=== PATIENT | female | born 1960 | race Caucasian/White ===

== ENCOUNTER 2021-07-03 21:38 | Emergency (ER) | payer OTHER, SELFPAY ==
[2021-07-03 21:41] VITALS: BP 157/70; PULSE 91; RESP 18; TEMP 36.8; O2SAT 98; BMI 28.1
[2021-07-03 22:19] LABS: Basophils Percent Auto 0.2 % (0-2); Eosinophils Absolute Auto 0.1 X10*3/uL (0.0-0.4); Hematocrit 34.7 % (37-47); Hemoglobin 12.5 g/dl (12.0-16.0); Imm Gran Abs Auto 0.03 X10*3/uL (0.00-0.03); Imm Gran Pct Auto 0.3 % (0.0-0.4); Lymphocytes Absolute Auto 1.8 X10*3/uL (1.2-4.9); Lymphocytes Percent Auto 18.9 % (20-40); MANUAL DIFF FLAG NO; Mean Corpuscular Hemoglobin 32.5 pg (27.0-33.0); Mean Corpuscular Volume 90.1 fL (80-98); Monocytes Absolute Auto 0.5 X10*3/uL (0.1-1.2); Monocytes Percent Auto 5.3 % (2-11); Neutrophils Absolute Auto 7.1 X10*3/uL (2.0-8.3); Neutrophils Percent Auto 74.3 % (45-73); Platelet Count 259 X10*3/uL (160-400); Red Blood Count 3.85 X10*6/uL (4.20-5.50); Red Cell Distribution Width 12.5 % (11.0-16.0); White Blood Count 9.6 X10*3/uL (4.8-10.8)
--- NOTE | 2021-07-03 22:39 | ED.HA ---
HPI - Headache General Chief Complaint: Headache Stated Complaint: headache Time Seen by Provider: 07/03/21 22:32 Source: patient Mode of arrival: ambulatory Limitations: no limitations History of Present Illness HPI Narrative: 61-year-old female with a past medical history of hypertension, seasonal allergies, sinusitis, hypothyroidism here with complaints of frontal headache with sinus pressure, pain, and nasal congestion for several days. Took Motrin today with continued headache. Does have some photophobia and headache is worsened with leaning forward. No nausea, vomiting, vision changes, dizziness, chest pain. History of sinusitis and feel similar. Was concerned that blood pressure was elevated 160/70 at home. This was before she took her morning dose of lisinopril 20 mg. Related Data Previous Rx's Medication Instructions Recorded amoxicillin 875 mg-potassium 1 tab PO BID #14 tab 07/03/21 clavulanate 125 mg tablet (Augmentin) qjugskmvoh-dwmsexxeyodiw-lzjbftkf 1 cap PO Q6H PRN #10 cap 07/03/21 50 mg-300 mg-40 mg capsule (Fioricet) Allergies Allergy/AdvReac Type Severity Reaction Status Date / Time No Known Allergies Allergy Unverified 07/13/20 16:20 Review of Systems Review of Systems: Yes all other systems are reviewed and are negative Constitutional: Constitutional: Reports no additional constitutional complaints, Denies body ache(s), Denies chills, Denies fever(s), Reports headache(s) and Denies weakness Eyes: Eyes: Reports no additional eye complaints and Denies change in vision Comments: Photophobia ENT: Reports system reviewed and no additional complaints, except as documented, Denies dizziness, Reports headache(s), Reports nasal congestion, Denies nasal discharge, Denies neck pain, Reports sinus pain and Reports sinus pressure Cardiovascular: Cardiovascular: Reports no additional cardiovascular complaints, Denies chest pain, Denies leg edema and Denies dyspnea Respiratory: Respiratory: Reports no additional respiratory complaints, Denies cough and Denies dyspnea Gastrointestinal: Gastrointestinal: Reports no additional gastrointestinal complaints, Denies abdominal pain, Denies diarrhea, Denies nausea and Denies vomiting Genitourinary: Genitourinary: Reports no additional female genitourinary complaints and Denies urinary incontinence Musculoskeletal: Musculoskeletal: Reports no additional musculoskeletal complaints, Denies back pain, Denies arthralgias, Denies joint swelling, Denies neck pain, Denies numbness and Denies tingling Integumentary/Breasts: Skin/Breast: Reports system reviewed and no additional complaints, except as docu and Denies rash Neurologic: Reports system reviewed and no additional complaints, except as documented, Denies Abnormal speech present, Denies dizziness, Reports headache(s), Denies numbness, Denies tingling and Denies weakness PMFSH Past Medical History Attestation statement: The following information was validated with the patient. Source: old records reviewed and nursing notes reviewed Medical History HTN (hypertension) Surgical History History of thyroid surgery Social History Social History Patient Tobacco Use Status: Never used Tobacco Use of substances other than those prescribed or required for medical reasons: No Advance Directives: No Advance Directives Information Provided: No Physical Exam Vital Signs: Vital Signs: Last Vital Signs Temp 98.3 F 07/03/21 21:41 Pulse 82 07/03/21 22:47 Resp 18 07/03/21 22:47 BP 160/88 H 07/03/21 22:47 Pulse Ox 98 07/03/21 22:47 Body Mass Index 28.1 Const: General: cooperative, healthy appearing, comfortable and no acute distress Orientation/consciousness: patient oriented x3 Limitations: no limitations HENMT: Head: Yes normal to inspection Ears: hearing grossly normal bilaterally and TM's normal bilaterally General nose exam: Normal external nose present Face and sinus: Yes normal facial exam and Yes sinus tenderness Mouth: Normal oral and palatal mucosa present Throat: Yes posterior oropharynx normal, Yes tonsils normal and Yes uvula midline Eyes: General: appearance normal, both eyes and all related structures Pupils: Equal, round and reactive pupils present Neck: Neck: Yes normal visual inspection Chest: Chest palpation & inspection: normal inspection of the chest Resp: Effort & Inspection: normal respiratory effort Auscultation: clear to auscultation bilaterally Cardio: Rate: regular rate Rhythm: regular rhythm Peripheral pulses: Peripheral pulses 2+ throughout GI: Inspection: Yes normal to inspection Palpation (GI): Soft to palpation and nontender Auscultation: normal bowel sounds Back/Spine/Pelvis: Thoracic/Lumbar Spine: thoracic and lumbar spine normal to inspection Skin: General skin exam: no rashes or lesions noted Neuro: General: patient oriented x3, no focal motor deficits and normal sensation to monofilament Cranial nerves: Yes CN's II-XII intact bilaterally, Yes Equal, round and reactive pupils present, Yes Bilaterally intact EOM present, Yes Nystagmus not present, Yes Normal facial strength present and Yes Midline tongue present Cognition (Neuro): normal cognition Speech: No Abnormal speech present Gait exam (Neuro): Normal gait present Motor exam (neuro): 5/5 motor strength present throughout Sensory Exam: Normal double simultaneous stimulation for sensation Coordination: vlwdcm-jt-lpcp test normal, nlxr-yo-lqmx test normal and tandem gait normal Extrem: General: Yes normal to inspection Course Course Course Narrative: 61-year-old female here with complaints of frontal headache, sinus pressure and pain, nasal congestion for several days. History of sinusitis and feel similar. Took Motrin prior to arrival with continued complaints. Normal neurological exam. No neuro deficits. Hemodynamically stable. Will give fiorcet and re-assess. If feeling improved will discharge home with course of antibiotics 2320-pain is improving. Patient is tolerating p.o.. Will treat with course of antibiotics and analgesia for home. Reviewed worrisome signs and symptoms of when to return to the emergency department. Comfortable discharge home. MDM - Headache Differential Diagnosis Differential diagnosis: Likely migraine and sinusitis Medical Records Attestation: I reviewed the patient's medical records. Lab Data Attestation: I reviewed the patient's lab results. Result diagrams: 07/03/21 22:14 07/03/21 22:14 Labs: Lab Results 07/03/21 07/03/21 Range/Units 22:14 22:14 WBC 9.6 (4.8-10.8) X10*3/uL RBC 3.85 L (4.20-5.50) X10*6/uL Hgb 12.5 (12.0-16.0) g/dl Hct 34.7 L (37-47) % MCV 90.1 (80-98) fL MCH 32.5 (27.0-33.0) pg MCHC 36.0 H (31.0-35.0) g/dl RDW 12.5 (11.0-16.0) % Plt Count 259 (160-400) X10*3/uL MPV 10.0 (9.4-12.3) fL Immature Gran % (Auto) 0.3 (0.0-0.4) % Neut % (Auto) 74.3 H (45-73) % Lymph % (Auto) 18.9 L (20-40) % [place] % (Auto) 5.3 (2-11) % Eos % (Auto) 1.0 (0-4) % Baso % (Auto) 0.2 (0-2) % Lymph # (Auto) 1.8 (1.2-4.9) X10*3/uL [place] # (Auto) 0.5 (0.1-1.2) X10*3/uL Eos # (Auto) 0.1 (0.0-0.4) X10*3/uL Baso # (Auto) 0.0 (0.0-0.2) X10*3/uL Abs Immat Gran (auto) 0.03 (0.00-0.03) X10*3/uL Absolute Neuts (auto) 7.1 (2.0-8.3) X10*3/uL Absolute Nucleated RBC 0.000 (0.0-0.012) X10*3/uL Nucleated RBC % (auto) 0.0 (0.0-0.2) /100WBC Sodium 140 (135-145) mmol/L Potassium 4.0 (3.3-5.1) mmol/L Chloride 106 (96-108) mmol/L Carbon Dioxide 24 (22-29) mmol/L Anion Gap 14 (12-20) BUN 15 (9-16) mg/dL Creatinine 0.78 (0.5-1.4) mg/dL Estim Creat Clear Calc 54.4 Estimated GFR > 60 Random Glucose 124 H (60-115) mg/dL Calcium 9.5 (8.4-10.2) mg/dL Total Bilirubin 0.4 (0.0-1.0) mg/dL Direct Bilirubin < 0.2 (0.0-0.5) mg/dL AST 22 (5-31) U/L ALT 21 (0-31) U/L Alkaline Phosphatase 79 (39-117) U/L Total Protein 7.6 (6.5-8.0) g/dL Albumin 4.6 (3.5-5.0) g/dL Discharge Plan Discharge Clinical Impression: Migraine, Sinusitis Patient Disposition: Home, Self-Care Instructions: Sinusitis (ED), Migraine Headache (ED) Additional Instructions: Increase Fluids, rest Limit screen time Your lab work looks normal Follow-up with your primary care doctor in regards to your high blood pressure. Continue your daily medication Prescriptions: New amoxicillin-pot clavulanate [Augmentin] 875-125 mg tablet 1 tab PO BID Qty: 14 RF: 0 dmhrggnbef-jwaqhpkpeuuen-smeu [Fioricet] 50-300-40 mg capsule 1 cap PO Q6H PRN (Reason: pain) Qty: 10 RF: 0 Referrals: Physician,Unknown [Primary Care Provider] - 2 days
[2021-07-03] MEDS: Butalb/Acetamin/Caff 50/325/40 TABLET 2 TAB PO (22:44)
[2021-07-03 22:46] LABS: Alanine Aminotransferase 21 U/L (0-31); Albumin Level 4.6 g/dL (3.5-5.0); Alkaline Phosphatase 79 U/L (39-117); Anion Gap 14 (12-20); Aspartate Amino Transferase 22 U/L (5-31); Bilirubin Direct < 0.2 mg/dL (0.0-0.5); Bilirubin Total 0.4 mg/dL (0.0-1.0); Blood Urea Nitrogen 15 mg/dL (9-16); Calcium 9.5 mg/dL (8.4-10.2); Carbon Dioxide 24 mmol/L (22-29); Chloride 106 mmol/L (96-108); Creatinine Clr Calc Pharmacy 54.4; Estimated Glomerular Filt Rate > 60; Glucose Random 124 mg/dL (60-115); Sodium 140 mmol/L (135-145); Total Protein 7.6 g/dL (6.5-8.0)
[2021-07-03 22:47] VITALS: BP 160/88; PULSE 82; RESP 18; O2SAT 98
[2021-07-03 23:57] VITALS: BP 123/71; PULSE 82; RESP 16; O2SAT 98
[2021-07-04 00:01] VITALS: BP 123/71; PULSE 79; RESP 16
== END 2021-07-04 00:01 | disposition home or self-care (01) ==
PROVIDERS: Emergency Provider Internal Medicine
DX: G43.909 Migraine, unspecified, not intractable, without status migrainosus (principal); J32.9 Chronic sinusitis, unspecified; I10 Essential (primary) hypertension
CPT/HCPCS: 36415; 80048; 80076; 85025; 99283; 99284

== ENCOUNTER 2022-01-15 23:31 | Emergency (ER) | payer OTHER, SELFPAY ==
--- NOTE | ~2022-01-15 | XR_ITS ---
EXAMINATION: XR CHEST, 2 VIEWS CLINICAL INFORMATION: High blood pressure. Migraine. COMPARISON: None. TECHNIQUE: PA and lateral views of the chest were obtained. FINDINGS: Lungs are clear. No consolidation, pneumothorax, or pleural effusion. Cardiac and mediastinal contours are normal. Pulmonary vasculature is unremarkable. Trachea is midline. Mild degenerative disc disease in the thoracic spine. XR/XR chest 2V IMPRESSION: No acute pulmonary findings.
[2022-01-15 23:37] VITALS: BP 187/101; PULSE 98; RESP 20; TEMP 37.8; O2SAT 98; BMI 28.9
[2022-01-16] MEDS: Acetaminophen 325 MG TABLET 975 MG PO (00:01)
[2022-01-16 00:33] LABS: Basophils Percent Auto 0.2 % (0-2); Eosinophils Absolute Auto 0.2 X10*3/uL (0.0-0.4); Eosinophils Percent Auto 1.4 % (0-4); Hematocrit 33.8 % (37.0-47.0); Hemoglobin 12.1 g/dl (12.0-16.0); Imm Gran Abs Auto 0.02 X10*3/uL (0.00-0.03); Imm Gran Pct Auto 0.2 % (0.0-0.4); Lymphocytes Absolute Auto 1.8 X10*3/uL (1.2-4.9); Lymphocytes Percent Auto 15.7 % (20-40); MANUAL DIFF FLAG NO; Mean Corpuscular HGB Conc 35.8 g/dl (31.0-35.0); Mean Corpuscular Hemoglobin 32.3 pg (27.0-33.0); Mean Corpuscular Volume 90.1 fL (80.0-98.0); Mean Platelet Volume 9.9 fL (9.4-12.3); Monocytes Absolute Auto 0.6 X10*3/uL (0.1-1.2); Monocytes Percent Auto 5.4 % (2-11); Neutrophils Absolute Auto 8.8 x10*3/uL (2.0-8.3); Neutrophils Percent Auto 77.1 % (45-73); Platelet Count 281 X10*3/uL (160-400); Red Blood Count 3.75 X10*6/uL (4.20-5.50); Red Cell Distribution Width 12.5 % (11.0-16.0); White Blood Count 11.4 X10*3/uL (4.8-10.8)
[2022-01-16 00:39] LABS: Prothrombin Time 11.1 SEC (9.9-13.0)
[2022-01-16 00:49] LABS: COVID-19 Test Negative (Negative); IDNOW Serial# 55D5AD1C
[2022-01-16 00:51] LABS: Influenza A Negative (Negative); Influenza B2 Negative (Negative)
[2022-01-16 01:08] LABS: Alanine Aminotransferase 21 U/L (0-31); Albumin Level 4.4 g/dL (3.5-5.0); Alkaline Phosphatase 78 U/L (39-117); Anion Gap 16 (12-20); Aspartate Amino Transferase 21 U/L (5-31); Bilirubin Total 0.4 mg/dL (0.0-1.0); Blood Urea Nitrogen 19 mg/dL (9-16); Calcium 9.5 mg/dL (8.4-10.2); Carbon Dioxide 23 mmol/L (22-29); Chloride 106 mmol/L (96-108); Creatinine Clr Calc Pharmacy 56.6; Estimated Glomerular Filt Rate > 60; Glucose Random 150 mg/dL (60-115); Magnesium 2.1 mg/dL (1.6-2.6); Potassium 3.9 mmol/L (3.3-5.1); Sodium 141 mmol/L (135-145); Total Protein 7.1 g/dL (6.5-8.0)
[2022-01-16 02:50] VITALS: BP 150/77; PULSE 84; RESP 15; O2SAT 99
[2022-01-16 03:01] VITALS: PULSE 84
--- NOTE | 2022-01-16 03:23 | ED.GENADULT ---
HPI - General Adult General Chief complaint: General Medical Stated complaint: High BP, migraine Time Seen by Provider: 01/15/22 23:56 Source: patient Mode of arrival: ambulatory History of Present Illness HPI narrative: 61-year-old female with history of hypertension and migraines presenting with typical migraine onset and progression that patient typically treats with Motrin but she states she did not take any this evening. She says that she had an elevated blood pressure and otherwise denies any shortness of breath, fevers, chills, GI or symptoms. Patient states that she noted her blood pressure was elevated in says that she has run out of blood pressure medications. Related Data Home Medications Medication Instructions Recorded Confirmed ibuprofen 800 mg tablet 1 tab PO TID PRN 01/16/22 01/16/22 levothyroxine 75 mcg tablet 1 tab PO DAILY 01/16/22 01/16/22 lisinopril 20 mg tablet 1 tab PO DAILY 01/16/22 01/16/22 loratadine 10 mg tablet 1 tab PO DAILY 01/16/22 01/16/22 Previous Rx's Medication Instructions Recorded lisinopril 20 mg tablet 20 mg PO DAILY 7 Days #7 tab 01/16/22 Allergies Allergy/AdvReac Type Severity Reaction Status Date / Time No Known Allergies Allergy Unverified 07/13/20 16:20 Review of Systems Review of Systems: Pertinent positives and negatives as stated in HPI 10 point review of systems is otherwise negative. [facility] Past Medical History Source: nursing notes reviewed Medical History HTN (hypertension) Surgical History History of thyroid surgery Social History Social History Patient Tobacco Use Status: Never used Tobacco Advance Directives: No Advance Directives Information Provided: Yes Physical Exam ED Vital Signs: Vital Signs - 24 hr 01/15/22 23:37 01/16/22 02:50 01/16/22 03:01 Temperature 100.0 F Pulse Rate 98 84 Pulse Rate [Monitor] 84 Respiratory Rate 20 15 Blood Pressure 187/101 H 150/77 H Pulse Oximetry 98 99 01/16/22 03:42 01/16/22 03:43 01/16/22 03:45 Temperature 97.7 F Pulse Rate 86 Pulse Rate [Monitor] Respiratory Rate 13 Blood Pressure 129/75 Pulse Oximetry 98 BMI result Body Mass Index 28.9 VITAL SIGNS: Reviewed. GENERAL: Well developed, well nourished, in no acute distress. HEAD: Normocephalic/atraumatic EYES: PERRLA, EOMI EARS: Ext canals without abnormality, TMs non-bulging and non-erythematous NOSE: Nares patent bilateral OROPHARYNX: no oral lesions noted, posterior pharynx clear and non-erythematous without noted tonsillar enlargement/erythema/exudates NECK: Supple, no adenopathy LUNGS: Normal breath sounds. No adventitious sounds or accessory muscle use. SpO2<98> CARDIOVASCULAR: Regular rate and rhythm without noted murmurs, no JVD or lower extremity edema. ABDOMEN: Soft, non-tender, non-distended with bowel sounds. SKIN: Inspection of the skin reveals no rashes NEUROLOGIC: Alert and oriented x 4. Strength and sensation to light touch were grossly intact x 4, no facial asymmetry, no pronator drift, cranial nerves 2-12 are grossly intact. Course Course Course Narrative: 61-year-old female with history and clinical presentation suggestive of migraine headache. Review of all investigations without acute findings and on re-evaluation after patient received medication for migraine she reports significant improvement and then endorses that she is out of blood pressure medication and she expects to pick it up this . Patient will be provided with a 1 week supply of her home blood pressure medication. Medical Decision Making Lab Data Result diagrams: 01/16/22 00:23 01/16/22 00:23 Labs: Lab Results 01/16/22 01/16/22 01/16/22 Range/Units 00: 00:23 00:23 WBC 11.4 H (4.8-10.8) X10*3/uL RBC 3.75 L (4.20-5.50) X10*6/uL Hgb 12.1 (12.0-16.0) g/dl Hct 33.8 L (37.0-47.0) % MCV 90.1 (80.0-98.0) fL MCH 32.3 (27.0-33.0) pg MCHC 35.8 H (31.0-35.0) g/dl RDW 12.5 (11.0-16.0) % Plt Count 281 (160-400) X10*3/uL MPV 9.9 (9.4-12.3) fL Immature Gran % (Auto) 0.2 (0.0-0.4) % Neut % (Auto) 77.1 H (45-73) % Lymph % (Auto) 15.7 L (20-40) % Becker % (Auto) 5.4 (2-11) % Eos % (Auto) 1.4 (0-4) % Baso % (Auto) 0.2 (0-2) % Lymph # (Auto) 1.8 (1.2-4.9) X10*3/uL Becker # (Auto) 0.6 (0.1-1.2) X10*3/uL Eos # (Auto) 0.2 (0.0-0.4) X10*3/uL Baso # (Auto) 0.0 (0.0-0.2) X10*3/uL Abs Immat Gran (auto) 0.02 (0.00-0.03) X10*3/uL Absolute Neuts (auto) 8.8 H (2.0-8.3) x10*3/uL Absolute Nucleated RBC 0.000 (0.0-0.012) X10*3/uL Nucleated RBC % (auto) 0.0 (0.0-0.2) /100WBC Hold Purple Top PT 11.1 (9.9-13.0) SEC INR 1.0 (0.9-1.1) Sodium 141 (135-145) mmol/L Potassium 3.9 (3.3-5.1) mmol/L Chloride 106 (96-108) mmol/L Carbon Dioxide 23 (22-29) mmol/L Anion Gap 16 (12-20) BUN 19 H (9-16) mg/dL Creatinine 0.76 (0.5-1.4) mg/dL Estim Creat Clear Calc 56.6 Estimated GFR > 60 Random Glucose 150 H (60-115) mg/dL Calcium 9.5 (8.4-10.2) mg/dL Magnesium 2.1 (1.6-2.6) mg/dL Total Bilirubin 0.4 (0.0-1.0) mg/dL AST 21 (5-31) U/L ALT 21 (0-31) U/L Alkaline Phosphatase 78 (39-117) U/L Total Protein 7.1 (6.5-8.0) g/dL Albumin 4.4 (3.5-5.0) g/dL Urine Color Urine Appearance Urine pH (5.0-8.0) Ur Specific Marlow (1.005-1.025) Urine Protein (NEG-TRACE) MG/DL Urine Glucose (UA) (NEG) MG/DL Urine Ketones (NEG) MG/DL Urine Blood (NEG) Urine Nitrite (NEG) Ur Leukocyte Esterase (NEG) COVID-19 (YIMI) (Negative) COVID-19 Clin Com Influenza Type A (PATRICK) (Negative) Influenza Type B (PATRICK) (Negative) Influenza A & B Note 01/16/22 01/16/22 01/16/22 Range/Units 00:23 00:23 00:23 WBC (4.8-10.8) X10*3/uL RBC (4.20-5.50) X10*6/uL Hgb (12.0-16.0) g/dl Hct (37.0-47.0) % MCV (80.0-98.0) fL MCH (27.0-33.0) pg MCHC (31.0-35.0) g/dl RDW (11.0-16.0) % Plt Count (160-400) X10*3/uL MPV (9.4-12.3) fL Immature Gran % (Auto) (0.0-0.4) % Neut % (Auto) (45-73) % Lymph % (Auto) (20-40) % [place] % (Auto) (2-11) % Eos % (Auto) (0-4) % Baso % (Auto) (0-2) % Lymph # (Auto) (1.2-4.9) X10*3/uL [place] # (Auto) (0.1-1.2) X10*3/uL Eos # (Auto) (0.0-0.4) X10*3/uL Baso # (Auto) (0.0-0.2) X10*3/uL Abs Immat Gran (auto) (0.00-0.03) X10*3/uL Absolute Neuts (auto) (2.0-8.3) x10*3/uL Absolute Nucleated RBC (0.0-0.012) X10*3/uL Nucleated RBC % (auto) (0.0-0.2) /100WBC Hold Purple Top SEE NOTE PT (9.9-13.0) SEC INR (0.9-1.1) Sodium (135-145) mmol/L Potassium (3.3-5.1) mmol/L Chloride (96-108) mmol/L Carbon Dioxide (22-29) mmol/L Anion Gap (12-20) BUN (9-16) mg/dL Creatinine (0.5-1.4) mg/dL Estim Creat Clear Calc Estimated GFR Random Glucose (60-115) mg/dL Calcium (8.4-10.2) mg/dL Magnesium (1.6-2.6) mg/dL Total Bilirubin (0.0-1.0) mg/dL AST (5-31) U/L ALT (0-31) U/L Alkaline Phosphatase (39-117) U/L Total Protein (6.5-8.0) g/dL Albumin (3.5-5.0) g/dL Urine Color Urine Appearance Urine pH (5.0-8.0) Ur Specific [place] (1.005-1.025) Urine Protein (NEG-TRACE) MG/DL Urine Glucose (UA) (NEG) MG/DL Urine Ketones (NEG) MG/DL Urine Blood (NEG) Urine Nitrite (NEG) Ur Leukocyte Esterase (NEG) COVID-19 (YIMI) Negative (Negative) COVID-19 Clin Com See Note Influenza Type A (PATRICK) Negative (Negative) Influenza Type B (PATRICK) Negative (Negative) Influenza A & B Note See Note 01/16/22 Range/Units 03:36 WBC (4.8-10.8) X10*3/uL RBC (4.20-5.50) X10*6/uL Hgb (12.0-16.0) g/dl Hct (37.0-47.0) % MCV (80.0-98.0) fL MCH (27.0-33.0) pg MCHC (31.0-35.0) g/dl RDW (11.0-16.0) % Plt Count (160-400) X10*3/uL MPV (9.4-12.3) fL Immature Gran % (Auto) (0.0-0.4) % Neut % (Auto) (45-73) % Lymph % (Auto) (20-40) % [place] % (Auto) (2-11) % Eos % (Auto) (0-4) % Baso % (Auto) (0-2) % Lymph # (Auto) (1.2-4.9) X10*3/uL [place] # (Auto) (0.1-1.2) X10*3/uL Eos # (Auto) (0.0-0.4) X10*3/uL Baso # (Auto) (0.0-0.2) X10*3/uL Abs Immat Gran (auto) (0.00-0.03) X10*3/uL Absolute Neuts (auto) (2.0-8.3) x10*3/uL Absolute Nucleated RBC (0.0-0.012) X10*3/uL Nucleated RBC % (auto) (0.0-0.2) /100WBC Hold Purple Top PT (9.9-13.0) SEC INR (0.9-1.1) Sodium (135-145) mmol/L Potassium (3.3-5.1) mmol/L Chloride (96-108) mmol/L Carbon Dioxide (22-29) mmol/L Anion Gap (12-20) BUN (9-16) mg/dL Creatinine (0.5-1.4) mg/dL Estim Creat Clear Calc Estimated GFR Random Glucose (60-115) mg/dL Calcium (8.4-10.2) mg/dL Magnesium (1.6-2.6) mg/dL Total Bilirubin (0.0-1.0) mg/dL AST (5-31) U/L ALT (0-31) U/L Alkaline Phosphatase (39-117) U/L Total Protein (6.5-8.0) g/dL Albumin (3.5-5.0) g/dL Urine Color YELLOW Urine Appearance HAZY Urine pH 7.0 (5.0-8.0) Ur Specific [place] 1.020 (1.005-1.025) Urine Protein NEG (NEG-TRACE) MG/DL Urine Glucose (UA) NEG (NEG) MG/DL Urine Ketones NEG (NEG) MG/DL Urine Blood NEG (NEG) Urine Nitrite NEG (NEG) Ur Leukocyte Esterase NEG (NEG) COVID-19 (YIMI) (Negative) COVID-19 Clin Com Influenza Type A (PATRICK) (Negative) Influenza Type B (PATRICK) (Negative) Influenza A & B Note ECG Data Attestation: I personally reviewed and interpreted this ECG as follows: Prior ECG tracings: not available for review Interpretation: Normal sinus rhythm, HR-92, no STEMI, AL/QRS/QTC are within normal limits. Discharge Plan Discharge Clinical Impression: Migraine, Hypertension Patient Disposition: Home, Self-Care Instructions: Migraine Headache (ED), DASH Eating Plan (ED), Hypertension (ED) Additional Instructions: 1. You have been provided with a prescription for 1 week of your blood pressure medication. 2. Please follow-up with your primary care provider for re-evaluation and further outpatient management. Return to the ER for worsening symptoms. Prescriptions: New lisinopril 20 mg tablet 20 mg PO DAILY 7 Days Qty: 7 0RF No Action ibuprofen 800 mg tablet 1 tab PO TID PRN (Reason: Pain) 0RF lisinopril 20 mg tablet 1 tab PO DAILY 0RF levothyroxine 75 mcg tablet 1 tab PO DAILY 0RF loratadine 10 mg tablet 1 tab PO DAILY 0RF Referrals: [facility] [Provider Group] - 2 days
[2022-01-16] MEDS: Ibuprofen 400 MG TABLET PO (03:41)
[2022-01-16 03:42] VITALS: TEMP 36.5
[2022-01-16 03:42] LABS: Appearance Urine HAZY; Color Urine YELLOW; Glucose Urine UA NEG (NEG); Leukocyte Esterase Urine NEG (NEG); Nitrite Urine NEG (NEG); Urine Blood NEG (NEG); Urine Ketones NEG (NEG); Urine Protein NEG (NEG-TRACE)
[2022-01-16 03:43] VITALS: PULSE 86; RESP 13; O2SAT 98
[2022-01-16 03:45] VITALS: BP 129/75
--- NOTE | 2022-01-16 23:56 | ECG_ITS ---
Test Reason : hypertension Blood Pressure : / mmHG Vent. Rate : 092 BPM Atrial Rate : 092 BPM P-R Int : 164 ms QRS Dur : 074 ms QT Int : 358 ms P-R-T Axes : 056 000 020 degrees QTc Int : 442 ms Normal sinus rhythm Minimal voltage criteria for LVH, may be normal variant ( R in aVL ) Borderline ECG When compared with ECG of 07-SEP-2012 11:34, No significant change was found Referred By: Generic ED Physician Electronically Signed By:Abran Rizzo
== END 2022-01-16 04:24 | disposition home or self-care (01) ==
PROVIDERS: Physician Assistant Medical; Emergency Provider Student in an Organized Health Care Education/Training Program
DX: G43.909 Migraine, unspecified, not intractable, without status migrainosus (principal); I10 Essential (primary) hypertension; Z20.822 Contact with and (suspected) exposure to COVID-19
CPT/HCPCS: 36415; 71046; 80053; 81003; 83735; 85025; 85610; 87502; 87635; 93005; 99283; 99284

== ENCOUNTER 2022-07-23 08:32 | Emergency (ER) | payer OTHER, MEDICARE, SELFPAY ==
--- NOTE | ~2022-07-23 | XR_ITS ---
EXAMINATION: XR RIBS, RIGHT CLINICAL INFORMATION: Right-sided pain COMPARISON: 01/16/2022 TECHNIQUE: 3 views of the right ribs were obtained. FINDINGS: No displaced rib fracture is seen. Lungs are well-expanded and clear. No pneumothorax or pleural effusion. The cardiomediastinal contour is unremarkable. XR/XR ribs RT min 3V w CXR1V IMPRESSION: No displaced rib fracture identified.
--- NOTE | ~2022-07-23 | CT_ITS ---
EXAM: NONCONTRAST CT OF THE CHEST; NONCONTRAST CT OF THE ABDOMEN AND PELVIS INDICATION: Fall, rib pain, right-sided greater than COMPARISON: None TECHNIQUE: No IV contrast was utilized. Multidetector helical imaging was performed through the chest, abdomen, and pelvis. Coronal and sagittal reformatted images were created at the technologist workstation. DOSE LOWERING TECHNIQUES: This CT examination was performed using dose optimization techniques as appropriate, variously including the following: - Automated exposure control - Adjustment of mA and/or kV according to patient size (this includes techniques or standardized protocols for targeted exams were dose is matched to indication/reason for exam; i.e. extremities or head) - Use of iterative reconstruction technique DLP: 648 mGy-cm FINDINGS: Chest: No regions of consolidation bilaterally mild bibasilar subsegmental atelectasis tiny calcified granulomas noted in the right lower lobe No pneumothorax or pleural effusion. There are subcentimeter mediastinal lymph nodes within the range of normal variation. Cardiac size is within normal limits; no pericardial effusion. Mild scattered calcification along the aorta. No axillary lymphadenopathy is present. No fracture identified. Multilevel degenerative endplate changes are present in the spine. Abdomen/Pelvis: The liver is homogeneous in attenuation without intrahepatic biliary ductal dilatation. The gallbladder is unremarkable. The unenhanced spleen, pancreas, and adrenal glands are within normal limits. The unenhanced kidneys are unremarkable without hydronephrosis. No renal or ureteral calculi are present. The urinary bladder is unremarkable. The uterus and adnexa are unremarkable. The small and large bowel are unremarkable without evidence of obstruction or pericolonic inflammatory change. The appendix is suspected to be collapsed. No free fluid or free air is identified. The unenhanced vascular structures are unremarkable. No retroperitoneal or pelvic lymphadenopathy is seen. No acute fracture is seen. There is severe joint space narrowing and surrounding degenerative endplate change at L5-S1. There is left-sided facet arthropathy at L4-L5. Scattered endplate osteophytes noted in the spine. Degenerative changes present at the pubic symphysis. CT/CT abdomen pelvis wo IV con IMPRESSION: 1. No acute findings identified in the chest, abdomen, or pelvis. 2. Chronic appearing/degenerative changes as noted above.
[2022-07-23 08:40] VITALS: BP 136/75; PULSE 81; RESP 18; TEMP 36.9; O2SAT 100; BMI 28.1
--- NOTE | 2022-07-23 10:28 | ED_ITS ---
HPI - General Adult General Chief complaint: Fall Stated complaint: fall/rib pain Time Seen by Provider: 07/23/22 10:17 Source: patient Mode of arrival: ambulatory Limitations: no limitations History of Present Illness HPI narrative: Patient is a 62 year old female presenting to the emergency department today with right sided rib pain. Patient states that she slipped and fell down the stairs and while sliding she turned onto her right side. Patient states that she did not hit her head with the incident and did not have any loss of consciousness. Patient states that only her right side hurts now. Patient denies any dizziness, lightheadedness, abdominal pain, nausea, vomiting, fever, chills, blurry vision, double vision, loss of vision, chest pain, difficulty breathing, shortness of breath, back pain, night sweats, pain with urination, increased urinary frequency, increased urinary urgency, blood in her urine or stool, syncope or a near syncopal episode, bowel incontinence, bladder incontinence, bowel retention, bladder retention, or any other complaints at this time. Onset (ago): hour(s) Radiation: non-radiation Severity: mild Severity scale (1-10): 3 Quality: aching, dull and constant Pain Consistency: constant Relieving factors: none Exacerbating factors: other (deep breathing) Associated symptoms: denies other symptoms Treatments prior to arrival: none Related Data Home Medications Medication Instructions Recorded Confirmed ibuprofen 800 mg tablet 1 tab PO TID PRN Pain 01/16/22 01/16/22 levothyroxine 75 mcg tablet 1 tab PO DAILY 01/16/22 01/16/22 lisinopril 20 mg tablet 1 tab PO DAILY 01/16/22 01/16/22 loratadine 10 mg tablet 1 tab PO DAILY 01/16/22 01/16/22 Previous Rx's Medication Instructions Recorded lisinopril 20 mg tablet 20 mg PO DAILY 7 days #7 tabs 01/16/22 Allergies Allergy/AdvReac Type Severity Reaction Status Date / Time No Known Allergies Allergy Unverified 07/13/20 16:20 Review of Systems Constitutional: Constitutional: Reports no additional constitutional complaints, Denies chills, Denies fever(s) and Denies night sweats Eyes: Eyes: Reports no additional eye complaints, Denies blurry vision, Denies change in vision, Denies diplopia, Denies eye discharge, Denies loss of vision and Denies eye pain ENT: Denies dizziness Cardiovascular: Cardiovascular: Reports no additional cardiovascular complaints, Denies chest pain, Denies lightheadedness, Denies Loss of Consciousness and Denies dyspnea Respiratory: Respiratory: Reports no additional respiratory complaints and Denies dyspnea Gastrointestinal: Gastrointestinal: Reports no additional gastrointestinal complaints, Denies abdominal pain, Denies melena, Denies hematochezia, Denies change in bowel habits and Denies change in stool character Genitourinary: Genitourinary: Denies hematuria, Denies urinary frequency, Denies dysuria, Denies urinary incontinence, Denies urinary hesitancy and Denies urinary urgency Musculoskeletal: Musculoskeletal: Reports no additional musculoskeletal complaints, Denies numbness and Denies tingling Comments: right sided rib pain Neurologic: Denies dizziness, Denies loss of vision, Denies numbness and Denies tingling Psychiatric: Psychiatric: Reports no additional psychiatric complaints Endocrine: Endocrine: Reports no additional endocrine complaints Hematologic/Lymphatic: Hematologic/Lymphatic: Reports no additional hematologic/lymphatic complaints Allergic/Immunologic: Allergic/Immunologic: Reports no additional bradley rgic/immunologic complaints PMFSH Past Medical History Attestation statement: The following information was validated with the patient. Source: old records reviewed Medical History HTN (hypertension) Surgical History History of thyroid surgery Social History Social History Patient Tobacco Use Status: Never used Tobacco Use of substances other than those prescribed or required for medical reasons: No Advance Directives: No Advance Directives Information Provided: No Physical Exam ED Vital Signs: Vital Signs - 24 hr 07/23/22 08:40 07/23/22 11:07 Temperature 98.4 F 98.4 F Pulse Rate 81 88 Respiratory Rate 18 18 Blood Pressure 136/75 181/84 H Pulse Oximetry 100 100 Oxygen Delivery Method Room Air BMI result Body Mass Index 28.1 Const General: cooperative, no acute distress, alert and awake Nutritional Appearance: well nourished Orientation/consciousness: patient oriented x3 Limitations: no limitations HENMT Head: Yes normal to inspection and Yes atraumatic Ears: hearing grossly normal bilaterally and external ears normal General nose exam: Normal external nose present, no nasal discharge noted and no epistaxis Face and sinus: Yes normal facial exam, No abrasion and No laceration Mouth: Normal oral and palatal mucosa present, no drooling and no muffled voice Eyes General: appearance normal, both eyes and all related structures Periorbital: periorbital findings normal Eyelids: Yes eyelids normal Conjunctivae: conjunctivae normal Pupils: Equal, round and reactive pupils present EOM: EOMs intact bilaterally Neck Neck: Yes normal visual inspection, Yes full ROM and Yes no lymphadenopathy Chest Other: pain with palpation to the right upper chest Chest palpation & inspection: normal inspection of the chest Resp Effort & Inspection: normal respiratory effort and able to speak in complete sentences Auscultation: clear to auscultation bilaterally Cardio Rate: regular rate Rhythm: regular rhythm GI Inspection: Yes normal to inspection Neuro General: patient oriented x3 and moves all extremities Cranial nerves: Yes Equal, round and reactive pupils present Cognition (Neuro): normal cognition Motor exam (neuro): 5/5 motor strength present throughout Sensory Exam: Normal double simultaneous stimulation for sensation Coordination: [id number] test normal Extrem General: Yes normal to inspection, Yes full ROM and Yes capillary refill normal Psych Appearance: grossly normal Mental Status: mental status grossly normal Affect: normal affect Attitude: cooperative Thought process: Normal thought process present Thought content: Normal thought content present Insight: Good insight present (Psych) Medical Decision Making MDM Narrative Medical decision making narrative: Patient is a 62 year old female presenting to the emergency department today with right rib pain. Patient's physical exam showed tenderness to palpation of the right upper ribs but was otherwise unremarkable. Patient's chest x-ray showed no acute process. Patient's abdominal and chest CTs showed no acute process. I explained my physical exam findings as well as all test results to the patient. I answered all questions asked by the patient. Patient received PO [place] and IM Toradol which she stated helped her symptoms significantly. I stressed the importance of the patient taking her medication as prescribed. Patient was given an incentive spirometer and given incentive spirometer education. I stressed the importance of the patient following up with her primary care provider. I stressed the importance of the patient returning to the emergency department immediately if her symptoms were to worsen or if she were to develop any dizziness, shortness of breath, difficulty breathing, chest pain, blurry vision, loss of vision, nausea, vomiting, abdominal pain, fever, chills, back pain, or any other complaints. Patient verbalized agreement and understanding with this treatment plan and discharge. Medical Records Medical records reviewed: Yes I reviewed the patient's medical records. Imaging Data Chest x-ray: Attestation: I personally reviewed and interpreted this imaging study as follows: My impression: No acute process. Radiologist's impression: EXAMINATION: XR RIBS, RIGHT CLINICAL INFORMATION: Right-sided pain COMPARISON: 01/16/2022 TECHNIQUE: 3 views of the right ribs were obtained. FINDINGS: No displaced rib fracture is seen. Lungs are well-expanded and clear. No pneumothorax or pleural effusion. The cardiomediastinal contour is unremarkable. XR/XR ribs RT min 3V w CXR1V IMPRESSION: No displaced rib fracture identified. Dictated By: Leo Heller MD Signed By: Electronically signed by Leo Heller MD 07/23/22 1003 Chest and abdominal/pelvis CT : Attestation: I personally reviewed and interpreted this imaging study as follows: My impression: No acute process. Radiologist's impression: EXAM: NONCONTRAST CT OF THE CHEST; NONCONTRAST CT OF THE ABDOMEN AND PELVIS INDICATION: Fall, rib pain, right-sided greater than COMPARISON: None TECHNIQUE: No IV contrast was utilized. Multidetector helical imaging was performed through the chest, abdomen, and pelvis. Coronal and sagittal reformatted images were created at the technologist workstation. DOSE LOWERING TECHNIQUES: This CT examination was performed using dose optimization techniques as appropriate, variously including the following: ?- Automated exposure control ?- Adjustment of mA and/or kV according to patient size (this includes techniques or standardized protocols for targeted exams were dose is matched to indication/reason for exam; i.e. extremities or head) ?- Use of iterative reconstruction technique DLP: 648 mGy-cm FINDINGS: Chest: No regions of consolidation bilaterally mild bibasilar subsegmental atelectasis tiny calcified granulomas noted in the right lower lobe No pneumothorax or pleural effusion. There are subcentimeter mediastinal lymph nodes within the range of normal variation. Cardiac size is within normal limits; no pericardial effusion. Mild scattered calcification along the aorta. No axillary lymphadenopathy is present. No fracture identified. Multilevel degenerative endplate changes are present in the spine. Abdomen/Pelvis: The liver is homogeneous in attenuation without intrahepatic biliary ductal dilatation. The gallbladder is unremarkable. The unenhanced spleen, pancreas, and adrenal glands are within normal limits. The unenhanced kidneys are unremarkable without hydronephrosis. No renal or ureteral calculi are present. The urinary bladder is unremarkable. The uterus and adnexa are unremarkable. The small and large bowel are unremarkable without evidence of obstruction or pericolonic inflammatory change. The appendix is suspected to be collapsed. No free fluid or free air is identified. The unenhanced vascular structures are unremarkable. No retroperitoneal or pelvic lymphadenopathy is seen. No acute fracture is seen. There is severe joint space narrowing and surrounding degenerative endplate change at L5-S1. There is left-sided facet arthropathy at L4-L5. Scattered endplate osteophytes noted in the spine. Degenerative changes present at the pubic symphysis. CT/CT abdomen pelvis wo IV con IMPRESSION: 1.? No acute findings identified in the chest, abdomen, or pelvis. 2.? Chronic appearing/degenerative changes as noted above. Dictated By: Leo Heller MD Signed By: Electronically signed by Leo Heller MD 07/23/22 9920 Discharge Plan Discharge Clinical Impression: Contusion Patient Disposition: Home, Self-Care Instructions: Contusion in Adults (ED) Additional Instructions: Follow up with your primary care provider. Return to the emergency department immediately if your symptoms worsen or if you develop any dizziness, shortness of breath, difficulty breathing, chest pain, blurry vision, loss of vision, nausea, vomiting, abdominal pain, fever, chills, back pain, or any other complaints. Prescriptions: No Action ibuprofen 800 mg tablet 1 tab PO TID PRN (Reason: Pain) lisinopril 20 mg tablet 1 tab PO DAILY levothyroxine 75 mcg tablet 1 tab PO DAILY loratadine 10 mg tablet 1 tab PO DAILY lisinopril 20 mg tablet 20 mg PO DAILY 7 Days Qty: 7 0RF Referrals: [facility] [Primary Care Provider] - Interventions: ED Discharge Assessment Last Done: 07/23/22 13:35 Discharge Date/Time: 07/23/22 13:36 Print Language: [place] Citizen
[2022-07-23] MEDS: HYDROcodone Bit/Acetam 5/325 TABLET 1 TAB PO (11:06)
[2022-07-23 11:07] VITALS: BP 181/84; PULSE 88; RESP 18; TEMP 36.9; O2SAT 100
--- NOTE | 2022-07-23 11:11 | PC.NURSE ---
[place] [facility] and had an x-ray but did not wait for results
[2022-07-23] MEDS: Ketorolac Tromethamine 15 MG/ML VIAL IM (13:30)
== END 2022-07-23 13:36 | disposition home or self-care (01) ==
PROVIDERS: Emergency Provider Emergency Medicine
DX: S20.213A Contusion of bilateral front wall of thorax, initial encounter (principal); S30.1XXA Contusion of abdominal wall, initial encounter; R07.81 Pleurodynia; R10.2 Pelvic and perineal pain; M54.6 Pain in thoracic spine; W10.9XXA Fall (on) (from) unspecified stairs and steps, initial encounter; Y93.9 Activity, unspecified; Y92.9 Unspecified place or not applicable; Y99.9 Unspecified external cause status; Z79.899 Other long term (current) drug therapy
CPT/HCPCS: 71101; 71250; 74176; 96372; 99284; J1885

== ENCOUNTER 2022-12-22 08:07 | Emergency (ER) | payer OTHER, SELFPAY ==
--- NOTE | ~2022-12-22 | CT_ITS ---
CT head/brain wo IV con CLINICAL INFORMATION: Reason for Exam head trauma with continued neurologic symptoms COMPARISON: No prior CT scan available for comparison. TECHNIQUE: Department standard protocol. This CT examination was performed using dose optimization techniques as appropriate, variously including the following: *Automated exposure control *Adjustment of mA and/or kV according to patient size (this includes techniques or standardized protocols for targeted exams where dose is matched to indication/reason for exam; i.e. extremities or head) *Use of iterative reconstruction technique DLP: 557 mGy-cm FINDINGS: CEREBRAL HEMISPHERES: There is no evidence of intra-axial or extra-axial mass, hemorrhage or acute infarct. BRAIN PARENCHYMA: Normal rogers-white matter differentiation. SUBDURAL SPACE: No bleed. BASAL GANGLIA AND PINEAL GLAND: Unremarkable VENTRICLES: Symmetric and normal in size. CEREBELLUM AND BRAINSTEM: No space-occupying mass, hemorrhage or acute infarct. CEREBELLOPONTINE ANGLES: No lesion found. ORBITS: No intraorbital mass. VESSELS: Unremarkable SKULL BASE: Unremarkable INCLUDED SINUSES AT SKULL BASE: Clear SKULL AND SKIN: Intraosseous radiolucencies posteriorly occipital bone at midline, this is chronic and has not changed since 2018 suggesting benign appearance and/or behavior. No CT evidence of skull fracture. CT/CT head/brain wo IV con IMPRESSION: * No CT evidence of intracranial space-occupying mass, bleed or infarct. * Intraosseous radiolucencies posteriorly occipital bone at midline, this is chronic and has not changed since 2018 suggesting benign appearance and/or behavior.
[2022-12-22 08:10] VITALS: BP 146/83; PULSE 97; RESP 18; TEMP 36.6; O2SAT 98; BMI 28.1
--- NOTE | 2022-12-22 08:18 | ED.GENADULT ---
HPI - General Adult General Chief complaint: Head Injury Stated complaint: Fall 1 wk ago Head/Neck pain Time Seen by Provider: 12/22/22 08:17 Source: patient Mode of arrival: ambulatory Limitations: no limitations History of Present Illness HPI narrative: 2 weeks ago had a head trauma at [facility] and was discharged. Patient with headache and throbbing in her ears. Onset (ago): day(s) Location: head Severity: mild Pain Consistency: constant Associated symptoms: denies other symptoms Related Data Home Medications Medication Instructions Recorded Confirmed ibuprofen 800 mg tablet 1 tab PO TID PRN Pain 01/16/22 01/16/22 levothyroxine 75 mcg tablet 1 tab PO DAILY 01/16/22 01/16/22 lisinopril 20 mg tablet 1 tab PO DAILY 01/16/22 01/16/22 loratadine 10 mg tablet 1 tab PO DAILY 01/16/22 01/16/22 Previous Rx's Medication Instructions Recorded lisinopril 20 mg tablet 20 mg PO DAILY 7 days #7 tabs 01/16/22 Allergies Allergy/AdvReac Type Severity Reaction Status Date / Time No Known Allergies Allergy Unverified 07/13/20 16:20 [facility] Past Medical History Medical History HTN (hypertension) Surgical History History of thyroid surgery Social History Social History Patient Tobacco Use Status: Never used Tobacco Smoked in Last 30 Days: No Use of substances other than those prescribed or required for medical reasons: No Advance Directives: No Advance Directives Information Provided: Yes Physical Exam ED Vital Signs: Vital Signs - 24 hr 12/22/22 08:10 12/22/22 09:34 12/22/22 10:00 Temperature 97.9 F 98.7 F Pulse Rate 97 87 78 Respiratory Rate 18 16 14 Blood Pressure 146/83 H 129/66 Pulse Oximetry 98 99 98 Oxygen Delivery Method Room Air Room Air Room Air BMI result Body Mass Index 28.1 Const General: healthy appearing Nutritional Appearance: average body habitus Orientation/consciousness: oriented to person and patient oriented x3 Limitations: no limitations HENMT Head: Yes normal to inspection Ears: external ears normal General nose exam: Normal external nose present Mouth: Normal oral and palatal mucosa present and oropharynx normal Throat: Yes posterior oropharynx normal Eyes General: appearance normal, both eyes and all related structures Neck Neck: Yes normal visual inspection Chest Chest palpation & inspection: normal inspection of the chest Resp Auscultation: clear to auscultation bilaterally Cardio Jugular venous distension: no JVD Rate: regular rate Rhythm: regular rhythm Heart sounds: S1 normal heart sound present and S2 normal heart sound present GI Inspection: Yes normal to inspection Palpation (GI): Soft to palpation, nontender and No hepatosplenomegaly present Auscultation: normal bowel sounds General: Yes no CVA tenderness Back/Spine/Pelvis Back: no CVA tenderness Skin Other: small scab to back of head Neuro General: oriented to person and patient oriented x3 Cranial nerves: Yes CN's II-XII intact bilaterally Motor exam (neuro): 5/5 motor strength present throughout Extrem General: Yes normal to inspection Psych Appearance: grossly normal Course Reevaluation(s) Reevaluation #1: head CT show no acute changes, will dc home Time: 11:19 Medical Decision Making Differential Diagnosis Differential Diagnoses: The differential diagnosis associated with the presentation includes (subdural, concussion, post concussion) Independent Interpretation I performed an independent interpretation of an: CT Scan (no bleed or subdural) Discharge Plan Discharge Clinical Impression: Closed head injury, Concussion without loss of consciousness, Postconcussion syndrome Patient Disposition: Home, Self-Care Instructions: Chronic Post Traumatic Headache (ED), Post Concussion Syndrome (ED) Prescriptions: No Action ibuprofen 800 mg tablet 1 tab PO TID PRN (Reason: Pain) lisinopril 20 mg tablet 1 tab PO DAILY levothyroxine 75 mcg tablet 1 tab PO DAILY loratadine 10 mg tablet 1 tab PO DAILY lisinopril 20 mg tablet 20 mg PO DAILY 7 Days Qty: 7 0RF Referrals: [facility] [Primary Care Provider] - 1 week
[2022-12-22 09:34] VITALS: PULSE 87; RESP 16; O2SAT 99
--- NOTE | 2022-12-22 09:36 | PC.NURSE ---
Pt reports head injury 12/03/22 with +LOC for approx 2 min. States persistent posterior headache, dizziness and left ear throbbing. Neuros are intact, speech clear. Denies nausea/vomiting. Skin pwd. VSS Out of room for ct scan at this time, steady gait
[2022-12-22 10:00] VITALS: BP 129/66; PULSE 78; RESP 14; TEMP 37.1; O2SAT 98
== END 2022-12-22 11:44 | disposition home or self-care (01) ==
PROVIDERS: Emergency Provider Emergency Medicine
DX: S06.0X0A Concussion without loss of consciousness, initial encounter (principal); R51.9 Headache, unspecified; W18.30XA Fall on same level, unspecified, initial encounter; Y93.9 Activity, unspecified; Y92.9 Unspecified place or not applicable; Y99.9 Unspecified external cause status; Z79.899 Other long term (current) drug therapy
CPT/HCPCS: 70450; 99284

== ENCOUNTER 2023-06-20 23:05 | Emergency (ER) | payer OTHER, MEDICARE, SELFPAY ==
--- NOTE | 2023-06-20 | ECG_ITS ---
Test Reason : ELEVATED BP Blood Pressure : / mmHG Vent. Rate : 089 BPM Atrial Rate : 089 BPM P-R Int : 146 ms QRS Dur : 074 ms QT Int : 376 ms P-R-T Axes : 064 004 035 degrees QTc Int : 457 ms Normal sinus rhythm Normal ECG When compared with ECG of 16-JAN-2022 00:10, No significant change was found Referred By: Generic ED Physician Electronically Signed By:LURDES HEAD
--- NOTE | ~2023-06-20 | CT_ITS ---
EXAMINATION: CT HEAD WITHOUT CONTRAST CLINICAL INFORMATION: Severe headache for 2 days with hypertension COMPARISON: 12/22/2022 TECHNIQUE: Contiguous axial imaging was performed from the skull base to vertex without intravenous administration of contrast. This CT examination was performed using dose optimization techniques as appropriate, variously including the following: *Automated exposure control *Adjustment of mA and/or kV according to patient size (this includes techniques or standardized protocols for targeted exams where dose is matched to indication/reason for exam; i.e. extremities or head) *Use of iterative reconstruction technique DLP: 550 mGy-cm FINDINGS: There is no evidence of acute intracranial hemorrhage or territorial infarction. No abnormal mass-effect or midline shift is seen. Chaudhari to white matter differentiation is well preserved. No extra-axial fluid collections are identified. The ventricles are normal in size. There is no abnormal attenuation within the brain parenchyma. No acute osseous findings. The mastoid air cells and visualized portions of the paranasal sinuses are well-aerated. CT/CT head/brain wo IV con IMPRESSION: No acute intracranial pathology.
[2023-06-20 23:24] VITALS: BP 191/118; PULSE 95; RESP 18; TEMP 36.8; O2SAT 98; BMI 29.2
[2023-06-21 00:24] LABS: MANUAL DIFF FLAG NO
[2023-06-21 00:25] LABS: Basophils Percent Auto 0.2 % (0-2); Eosinophils Absolute Auto 0.1 X10*3/uL (0.0-0.4); Eosinophils Percent Auto 1.2 % (0-4); Hematocrit 35.4 % (37.0-47.0); Hemoglobin 12.5 g/dl (12.0-16.0); Imm Gran Abs Auto 0.07 X10*3/uL (0.00-0.03); Imm Gran Pct Auto 0.8 % (0.0-0.4); Lymphocytes Absolute Auto 2.1 X10*3/uL (1.2-4.9); Lymphocytes Percent Auto 24.2 % (20-40); Mean Corpuscular HGB Conc 35.3 g/dl (31.0-35.0); Mean Corpuscular Hemoglobin 31.8 pg (27.0-33.0); Mean Corpuscular Volume 90.1 fL (80.0-98.0); Mean Platelet Volume 9.5 fL (9.4-12.3); Monocytes Absolute Auto 0.6 X10*3/uL (0.1-1.2); Monocytes Percent Auto 6.2 % (2-11); Neutrophils Percent Auto 67.4 % (45-73); Platelet Count 314 X10*3/uL (160-400); Red Blood Count 3.93 X10*6/uL (4.20-5.50); Red Cell Distribution Width 12.5 % (11.0-16.0); White Blood Count 8.9 X10*3/uL (4.8-10.8)
[2023-06-21 00:37] LABS: Anion Gap 12 (12-20); Blood Urea Nitrogen 14 mg/dL (9-16); Calcium 9.9 mg/dL (8.4-10.2); Carbon Dioxide 26 mmol/L (22-29); Chloride 108 mmol/L (96-108); Creatinine Clr Calc Pharmacy 55.5; Estimated Glomerular Filt Rate > 60; Glucose Random 157 mg/dL (60-115); Potassium 3.9 mmol/L (3.3-5.1); Sodium 142 mmol/L (135-145)
[2023-06-21 01:59] VITALS: BP 177/96; PULSE 90; RESP 18; O2SAT 98
[2023-06-21 02:33] VITALS: BP 179/98; PULSE 87; RESP 16; TEMP 37; O2SAT 98
--- NOTE | 2023-06-21 02:49 | ED_ITS ---
HPI - General Adult General Chief complaint: General Medical Stated complaint: high bp x 2 days 183/109 around 9 pm Time Seen by Provider: 06/21/23 02:36 Source: patient Mode of arrival: ambulatory Limitations: no limitations History of Present Illness HPI narrative: 63-year-old female with history of hypertension presents with headache. The headache is severe. It started 2 days ago. Gradual in onset increasing in severity. She believes she has a sinus headache. She points to the front of her face where the pain is but then also points the left side of her head. Patient did have an accident recently and she reports having had occipital headache due to the accident. Her concussion symptoms had resolved. Today, she reports her pain is severe. Worse with light and sound. Is not associated with nausea vomiting. She has had no fevers or chills. She denies any neck pain or stiffness. Symptoms were not sudden in onset. She did recently change her blood pressure medication but she is not sure with the name it is. Related Data Home Medications Medication Instructions Recorded Confirmed ibuprofen 800 mg tablet 1 tab PO TID PRN Pain 01/16/22 01/16/22 levothyroxine 75 mcg tablet 1 tab PO DAILY 01/16/22 01/16/22 lisinopril 20 mg tablet 1 tab PO DAILY 01/16/22 01/16/22 loratadine 10 mg tablet 1 tab PO DAILY 01/16/22 01/16/22 Previous Rx's Medication Instructions Recorded lisinopril 20 mg tablet 20 mg PO DAILY 7 days #7 tabs 01/16/22 [id number] 1 cap PO Q8H PRN pain #7 caps 06/21/23 50 mg-300 mg-40 mg capsule (Fioricet) labetalol 100 mg tablet 100 mg PO BID #10 tabs 06/21/23 Allergies Allergy/AdvReac Type Severity Reaction Status Date / Time No Known Allergies Allergy Verified 06/20/23 23:23 Review of Systems Review of Systems: CONSTITUTIONAL: Denies weight loss, fever and chills. HEENT: Denies changes in vision and hearing. RESPIRATORY: Denies SOB and cough. CV: Denies palpitations no CP. GI: Denies abdominal pain, nausea, vomiting and diarrhea. : Denies dysuria and urinary frequency. MSK: Denies myalgia and joint pain. SKIN: Denies rash and pruritus. NEUROLOGICAL: + headache - syncope. PSYCHIATRIC: Denies recent changes in mood. Denies anxiety and depression. All other ROS are negative unless in HPI PMFSH Past Medical History Medical History HTN (hypertension) Surgical History History of thyroid surgery Social History Social History Alcohol intake: never Patient Tobacco Use Status: Never used Tobacco Smoked in Last 30 Days: No Use of substances other than those prescribed or required for medical reasons: No Advance Directives: No Advance Directives Information Provided: Yes Physical Exam ED Vital Signs: Vital Signs - 24 hr 06/20/23 23:24 06/21/23 01:59 06/21/23 02:33 Temperature 98.2 F 98.6 F Pulse Rate 95 90 87 Respiratory Rate 18 18 16 Blood Pressure 191/118 H 177/96 H 179/98 H Pulse Oximetry 98 98 98 Oxygen Delivery Method Room Air Room Air Room Air BMI result Body Mass Index 29.2 GEN: Well developed, no acute distress, alert, oriented HEENT: Normocephalic, atraumatic, normal external ears, nose appears normal, no oropharyngeal edema or exudates Eyes: Normal to appearance Neck: Supple, no lymphadenopathy Respiratory: Talks in complete sentences, no respiratory distress, clear to auscultation bilaterally Cardiovascular: Regular rate and rhythm, no murmurs rubs or gallops Abdomen: Soft, nontender, nondistended, no guarding, no rebound Back: No CVA tenderness Extremities: No clubbing cyanosis or edema Neurologic: No focal neurologic deficits, cranial nerves 2-12 intact, strength is 5/5 bilaterally Skin: No rash Course Course Course Narrative: Is 3:40 a.m.. The workup is complete. CT scan of the head demonstrates no acute intracranial findings. Blood pressure came down nicely on labetalol. Her headache is much better controlled. I will continue labetalol with her usual blood pressure medication and she can follow-up with her primary care provider on Friday or Friday for medication adjustment. I will also provide her with a prescription of Fioricet for additional analgesia. She can return for any worsening concerning symptoms. Medications Administered Discontinued Medications Generic Name Dose Route Start Last Admin Trade Name Ilda PRN Reason Stop Dose Admin Acetaminophen/Butalbital/Caffeine 1 tab 06/21/23 02:53 06/21/23 03:16 Butalb/Acetamin/Caff 50/325/40 Tablet PO 06/21/23 02:54 1 tab ONCE ONE Administration Labetalol HCl 100 mg 06/21/23 02:53 06/21/23 03:16 Labetalol Hcl 100 Mg Tablet PO 06/21/23 02:54 100 mg ONCE ONE Administration Protocol Metoclopramide HCl 10 mg 06/21/23 02:53 06/21/23 03:17 Metoclopramide Hcl Oral Soln 10 Mg/10 Ml Solution PO 06/21/23 02:54 Not Given ONCE ONE Medical Decision Making Medical Decision Making [facility] Narrative: Patient presents with elevated blood pressure and headache. Exam is benign with no focal neurologic deficits. Differential diagnosis of headache would be tension headache, sinus headache, cluster headache, migraine. This could also be related to hypertensive urgency. I will obtain a CT scan of the head given that she has no significant history of headaches. I will also provide the patient with analgesia. Will check routine laboratory testing to make sure there is no renal dysfunction. Differential Diagnosis Differential Diagnoses: The differential diagnosis associated with the presentation includes (See above) Lab Data [facility] Lab Attestation statement: I reviewed the patient's lab results. 06/21/23 00:19 06/21/23 00:19 Labs: Lab Results 06/21/23 06/21/23 Range/Units 00:19 00:19 WBC 8.9 (4.8-10.8) X10*3/uL RBC 3.93 L (4.20-5.50) X10*6/uL Hgb 12.5 (12.0-16.0) g/dl Hct 35.4 L (37.0-47.0) % MCV 90.1 (80.0-98.0) fL MCH 31.8 (27.0-33.0) pg MCHC 35.3 H (31.0-35.0) g/dl RDW 12.5 (11.0-16.0) % Plt Count 314 (160-400) X10*3/uL MPV 9.5 (9.4-12.3) fL Immature Gran % (Auto) 0.8 H (0.0-0.4) % Neut % (Auto) 67.4 (45-73) % Lymph % (Auto) 24.2 (20-40) % Mclean % (Auto) 6.2 (2-11) % Eos % (Auto) 1.2 (0-4) % Baso % (Auto) 0.2 (0-2) % Lymph # (Auto) 2.1 (1.2-4.9) X10*3/uL Mclean # (Auto) 0.6 (0.1-1.2) X10*3/uL Eos # (Auto) 0.1 (0.0-0.4) X10*3/uL Baso # (Auto) 0.0 (0.0-0.2) X10*3/uL Abs Immat Gran (auto) 0.07 H (0.00-0.03) X10*3/uL Absolute Neuts (auto) 6.0 (2.0-8.3) x10*3/uL Absolute Nucleated RBC 0.000 (0.0-0.012) X10*3/uL Nucleated RBC % (auto) 0.0 (0.0-0.2) /100WBC Sodium 142 (135-145) mmol/L Potassium 3.9 (3.3-5.1) mmol/L Chloride 108 (96-108) mmol/L Carbon Dioxide 26 (22-29) mmol/L Anion Gap 12 (12-20) BUN 14 (9-16) mg/dL Creatinine 0.76 (0.5-1.4) mg/dL Estim Creat Clear Calc 55.5 Estimated GFR > 60 Random Glucose 157 H (60-115) mg/dL Calcium 9.9 (8.4-10.2) mg/dL Independent Interpretation I performed an independent interpretation of an: EKG (Normal sinus rhythm heart rate 89, normal intervals, no acute ST elevations depressions, no evidence of a LVH) and CT Scan (head: NAD) Radiology Impression Discussion of test interpretation with radiology: I have reviewed the radiologist's reading. Radiologist Impression: CT/CT head/brain wo IV con IMPRESSION: No acute intracranial pathology. ? Dictated By: Leo Heller MD Signed By: <Electronically signed by Leo Heller MD in OV> 06/21/23 0332 Prescription Management I considered prescription management with: Pain Medication Chronic Conditions Patient?s care impacted by: Hypertension Discharge Plan Discharge Clinical Impression: Hypertensive urgency, Acute headache Patient Disposition: Home, Self-Care Instructions: Acute Headache (DC), Hypertensive Crisis (ED) Prescriptions: New labetalol 100 mg tablet 100 mg PO BID Qty: 10 0RF [id number] [Fioricet] 50-300-40 mg capsule 1 cap PO Q8H PRN (Reason: pain) Qty: 7 0RF No Action ibuprofen 800 mg tablet 1 tab PO TID PRN (Reason: Pain) lisinopril 20 mg tablet 1 tab PO DAILY levothyroxine 75 mcg tablet 1 tab PO DAILY loratadine 10 mg tablet 1 tab PO DAILY lisinopril 20 mg tablet 20 mg PO DAILY 7 Days Qty: 7 0RF Referrals: Name,MD Barron [Primary Care Provider] - 2 days
[2023-06-21] MEDS: Labetalol HCL 100 MG TABLET PO (03:16)
[2023-06-21] MEDS: Butalb/Acetamin/Caff 50/325/40 TABLET 1 TAB PO (03:16)
[2023-06-21 03:44] VITALS: BP 141/72; PULSE 84; RESP 16; TEMP 36.7; O2SAT 97
== END 2023-06-21 03:47 | disposition home or self-care (01) ==
PROVIDERS: Emergency Provider Emergency Medicine; PCP Internal Medicine Geriatric Medicine
DX: I16.0 Hypertensive urgency (principal); R51.9 Headache, unspecified; I10 Essential (primary) hypertension; Z79.899 Other long term (current) drug therapy
CPT/HCPCS: 36415; 70450; 80048; 85025; 93005; 99284; 99285

== ENCOUNTER 2023-08-05 13:55 | Outpatient (REF) | payer OTHER, MEDICARE, SELFPAY ==
--- NOTE | ~2023-08-05 | XR_ITS ---
EXAMINATION: XR HAND, RIGHT CLINICAL INFORMATION: Right hand pain. COMPARISON: None available. TECHNIQUE: PA, lateral, and oblique views of the right hand. FINDINGS: Examination demonstrates mild osteoarthritis involving the first interphalangeal joint and possibly the first MCP joint. Mild to moderate degenerative changes of the STT joint. Suspect old, healed fracture of the fifth metacarpal bone. The bones and soft tissues otherwise appear unremarkable. No acute fracture appreciated. Alignment is anatomic. Joint spaces otherwise appear maintained. No erosions or soft tissue calcifications. XR/XR hand RT min 3V IMPRESSION: Mild osteoarthritis involving the first interphalangeal joint and possibly the first MCP joint. Mild to moderate degenerative changes of the STT joint.
== END 2023-08-05 13:56 | disposition home or self-care (01) ==
LOC: HO.HOSX 13:55
PROVIDERS: PCP Internal Medicine Geriatric Medicine; Visit Provider Orthopaedic Surgery
DX: M18.11 Unilateral primary osteoarthritis of first carpometacarpal joint, right hand (principal); M77.8 Other enthesopathies, not elsewhere classified
CPT/HCPCS: 73130

== ENCOUNTER 2023-08-05 13:55 | Outpatient (AMB) | payer MEDICARE, OTHER, SELFPAY ==
--- NOTE | 2023-08-05 13:58 | MHC.OFFVIS ---
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 States she noticed this about 3 weeks ago, states she has notice it has increase a little in size. Pain when she bend her thumb and when pinching movement. Denies numbness, tingling or locking of any finger. 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 She complains of a painful mass on the dorsal aspect of her right thumb. She says this has been present for ~3 weeks now, and interferes with her daily activity. She has pain when she bends her thumb. She denies any numbness, tingling, or locking. She denies any prior injuries. [facility] Medical History HTN (hypertension) Surgical History History of thyroid surgery Social History (Updated 08/05/23 @ 14:09 by Delphine Lala [facility]) Alcohol intake: never Patient Tobacco Use Status: Never used Tobacco Current occupational status: disabled Current occupation: rt hand Review of Systems Const All systems reviewed & are unremarkable except as noted in HPI and below Physical Exam Vital Signs: BMI result Body Mass Index 29.2 Const General: cooperative, healthy appearing and no acute distress Orientation/consciousness: patient oriented x3 HEENT Head: Yes normocephalic and Yes atraumatic Eyes EOM: EOMs intact bilaterally Resp Effort & Inspection: normal respiratory effort and able to speak in complete sentences Cardio Jugular venous distension: no JVD Skin General skin exam: turgor normal Rashes: no rashes Neuro General: patient oriented x3 Extrem Other: Evaluation of Right Upper Extremity: The patient is alert, oriented, and in no acute distress Neuro: Median, Ulnar, Radial nerves motor and sensory intact and sensation is normal to the tips of all digits Vascular: Cap refill brisk ROM: She can make a fist and extend all her digits She can oppose her thumb to all digits Skin: No lacerations or abrasions. General: No Ecchymosis. No Erythema or evidence of infection. There is a cystic mass over the dorsal aspect of the right thumb IP joint, measuring ~5mm*8mm in size. This feels like it is associated with an underlying osteophyte Radiographs: 3 views of the right hand, with attention to the thumb, were taken and viewed by me today in clinic. They show no fractures or dislocations. She has some STT joint, basal joint, and thumb IP joint arthritis with joint space narrowing, particularly of the radial aspect of the IP joint. She also has some dorsal ostephytes both on the dorsal base of distal phalanx and dorsal aspect of proximal phalanx. Psych Appearance: grossly normal Affect: normal affect Attitude: cooperative Assessment & Plan Assessment & Plan (1) Osteoarthritis of right thumb: Code(s): M18.11 - Unilateral primary osteoarthritis of first carpometacarpal joint, right hand (2) Bone spur of finger IP joint: Code(s): M77.8 - Other enthesopathies, not elsewhere classified Plan Assessment & Plan: 1. Right thumb IP joint osteoarthritis with a dorsal osteophyte and overlying mucous cyst Measuring ~5mm*8mm in size. This is associated with an osteophyte 2. Right hand osteoarthritis Involving the STT, Basal, and IP joints With dorsal ostephytes both on the dorsal base of distal phalanx and dorsal aspect of proximal phalanx I educated her about these conditions I discussed operative and non-operative treatment options The patient would like to proceed with surgery The risks and benefits of operative treatment were discussed with the patient and the patient wishes to proceed with surgery. These risks include, but are not limited to risk of damage to blood vessels, nerves, tendons, infection, recurrence, incomplete relief of preoperative symptoms, persistent pain, possible need for further surgery and the risks associated with regional blocks and anesthesia. The plan is to take the patient to the operating room sometime in the next few weeks for the following procedures: 1. Right thumb IP joint arthrotomy, under local 2. Right thumb excision of osteophytes, under local 3. Right thumb removal of mucus cyst, under local All of the preoperative paperwork including the consent was filled out today. All the patient's questions were answered. The patient understands that they will be contacted by our rejector soon to schedule this procedure She denies Diabetes, blood thinners, asthma, heart, lung, kidney issues Scribed for Lucy Morales MD by Robert Street, medical advisor, on 08/05/23 at 2:30 PM, EST. Orders: Orders XR hand RT min 3V Today M79.641 - Pain in right hand Coding Level of Care Code New Pt Level 4 (77061) Diagnoses Osteoarthritis of right thumb M18.11 Bone spur of finger IP joint M77.8
[2023-08-05 13:59] VITALS: BMI 29.2
== END 2023-08-05 14:53 | disposition home or self-care (01) ==
PROVIDERS: PCP Internal Medicine Geriatric Medicine; Visit Provider Orthopaedic Surgery
DX: M18.11 Unilateral primary osteoarthritis of first carpometacarpal joint, right hand (principal); M67.441 Ganglion, right hand; M77.8 Other enthesopathies, not elsewhere classified
CPT/HCPCS: 99204

== ENCOUNTER 2023-09-22 09:19 | Day surgery (SDC) | payer OTHER, MEDICARE, SELFPAY ==
[2023-09-22 11:10] VITALS: BP 122/65; PULSE 68; RESP 18; TEMP 36.3; O2SAT 98; BMI 29.6
--- NOTE | 2023-09-22 12:22 | MHC.SHP ---
Pre-Procedural Eval Section A Date of Service: 09/22/23 The patient is an INPATIENT: No Changes since office visit: No Cold of Flu in the past 2 weeks, No New Medical Problems, No Changes in Medication and No Patient answered all questions The History & Physical has been completed within 30 days and I have reviewed it.: Yes Section B Chief Complaint: right thumb IP osteoarthritis and mucous cyst Allergies: Allergies Allergy/AdvReac Type Severity Reaction Status Date / Time No Known Allergies Allergy Verified 08/05/23 14:08 Plan I have reviewed the history and physical and performed a pertinent physical examination on my patient. No changes have occurred unless specified. Time Spent With Patient Time: Total time managing care of this patient today ____ minutes.
--- NOTE | 2023-09-22 12:22 | W.PM.OPN ---
Operative Note Operative Note Date of Service: 09/22/23 Narrative: Operative Note Preop diagnosis: 1. right thumb IP joint osteoarthritis and mucous cyst Postop diagnosis: 1. same Procedure: 1. right thumb mucous cyst excision 2. right thumb IP joint arthrotomy and excision of osteophytes. Surgeon: Lucy Morales MD Anesthesia: Digital block using 1% lidocaine with epinephrine Findings: mucous cyst, dorsal osteophytes both on the proximal and distal aspect of the radial side of the IP joint of the thumb. EBL: Less than 5 mL Tourniquet time: None Specimens: None Complications: None Disposition: Brought to recovery room in stable condition Plan: Follow-up for 7-10 days for wound check and suture removal Indications: The patient is 63 years old, with right thumb IP joint osteoarthritis and a mucous cyst that has been unresponsive to nonoperative management. The risks and benefits of operative treatment including but not limited to risk of damage to blood vessels, nerves, tendons, infection, persistent pain, persistent symptoms, recurrence or possible need for additional surgery were discussed with the patient and the patient wishes to proceed with surgery. Procedure: Once consent was obtained a digital block was performed in the preop area using a combination of 1% lidocaine with epinephrine. The patient was then brought back to the operating suite and placed on the operative table in supine position. A tourniquet was applied to the proximal aspect of the right upper extremity and the limb was prepped and draped in a standard surgical fashion. Once assured that we had a good block, an L-shaped incision was made over the dorsal aspect of the right distal phalanx. The incision was made through the skin to the subcutaneous tissues using a #15 blade. Careful dissection was made down to the level of the mucous cyst and extensor mechanism using iris scissors. She had fairly large osteophytes over the dorsal radial aspect of the IP joint both proximally and distally. The cyst was filled with clear viscous fluid consistent with a ganglion. It was dissected free from the surrounding tissues and removed from the thumb and placed on the back table to be sent for histopathology. An arthrotomy was performed on the radial side of the extensor mechanism at the IP joint. The periarticular osteophytes were excised from both proximal and distal to the articular surface using a rongeur. Once satisfied, the wound was copiously irrigated with normal saline and hemostasis was obtained with a brief period of local pressure. The skin edges were reapproximated with some 5.0 Prolene suture material and a sterile dressing was applied. The patient appears to have tolerated the procedure well and with no complications. All digits were well vascularized at the conclusion of the case.
[2023-09-22 13:08] VITALS: BP 123/71; PULSE 69; RESP 16; O2SAT 97
== END 2023-09-22 13:17 | disposition home or self-care (01) ==
PROVIDERS: Visit Provider Orthopaedic Surgery
PROC: (CPT 25101; principal; 2023-09-22 11:50)
DX: M67.441 Ganglion, right hand (principal); M19.041 Primary osteoarthritis, right hand; I10 Essential (primary) hypertension
CPT/HCPCS: 26160; 88304; J0171

== ENCOUNTER → 2023-09-22 09:19 | Outpatient (BNV) | payer OTHER, MEDICARE, SELFPAY | PROVIDERS: Visit Provider Orthopaedic Surgery | DX: M67.441 Ganglion, right hand (principal); M19.041 Primary osteoarthritis, right hand | CPT/HCPCS: 26160; 26210 ==

== ENCOUNTER 2023-10-03 10:47 | Outpatient (AMB) | payer MEDICARE, OTHER, SELFPAY ==
--- NOTE | 2023-10-03 10:51 | MHC.OFFVIS ---
Intake Intake Visit Reasons: PO Right thumb IPJ 09/22/23 AR Intake Note: Meera is a 63 year old female who presents today for a post op appointment s/p right thumb IPJ 09/22/23 AR. Patient reports she is doing well just feeling some soreness. Allergies No Known Allergies Allergy (Verified 10/03/23 10:54) HPI PO Right thumb IPJ 09/22/23 AR HPI Details 63-year-old female who presents in the office today 11 days status post right thumb mucous cyst excision and IP joint arthrotomy and excision of osteophytes, which was performed on 09/22/[address] Morales. The patient reports she is doing well, but does have some soreness. [facility] Medical History HTN (hypertension) Surgical History History of thyroid surgery Social History Alcohol intake: never Comment: counts correct Patient Tobacco Use Status: Never used Tobacco Current occupational status: disabled Current occupation: rt hand Review of Systems Const All systems reviewed & are unremarkable except as noted in HPI and below Physical Exam Const General: cooperative, healthy appearing and no acute distress Resp Effort & Inspection: normal respiratory effort and able to speak in complete sentences Cardio Rate: regular rate Peripheral pulses: Peripheral pulses 2+ throughout GI Palpation (GI): Soft to palpation Skin Lesions: no lesions Rashes: no rashes Extrem Other: Right thumb: Incision site is clean, dry, and intact. Sutures intact. No surrounding erythema or drainage. No signs of infection. Able to slightly perform flexion and extension at the IP joint but is limited due to stiffness and sutures. Assessment & Plan Assessment & Plan (1) Osteoarthritis of right thumb: Code(s): M18.11 - Unilateral primary osteoarthritis of first carpometacarpal joint, right hand (2) Bone spur of finger IP joint: Code(s): M77.8 - Other enthesopathies, not elsewhere classified Plan Ms. Henry is a 63-year-old female who presents in the office today 11 days status post right thumb mucous cyst excision and IP joint arthrotomy and excision of osteophytes, which was performed on 09/22/[address] Morales. The patient reports she is doing well, but does have some soreness. Sutures were removed while in the office today and steri-stripes were applied. She was educated to not submerge the hand in under water for an additional week. She may return to normal activities as tolerated. I have placed a referral to occupational therapy due to stiffness. Follow up will be in 2 weeks for a ROM check, or sooner if needed. Patient Instructions: Scribed for Brenda Villegas PA-C by Ellyn Khalil biomedical engineering technician, on 10/03/2023 at 10:49 am, EST. Coding Level of Care Code Global (86508) Diagnoses Osteoarthritis of right thumb M18.11 Bone spur of finger IP joint M77.8
== END 2023-10-03 11:32 | disposition home or self-care (01) ==
PROVIDERS: PCP Internal Medicine Geriatric Medicine; Visit Provider Physician Assistant
DX: M18.11 Unilateral primary osteoarthritis of first carpometacarpal joint, right hand (principal); M77.8 Other enthesopathies, not elsewhere classified
CPT/HCPCS: 99024

== ENCOUNTER → 2023-10-03 10:47 | Outpatient (BNVA) | payer MEDICARE, OTHER, SELFPAY | PROVIDERS: PCP Internal Medicine Geriatric Medicine; Visit Provider Physician Assistant | DX: Z47.89 Encounter for other orthopedic aftercare (principal); M18.11 Unilateral primary osteoarthritis of first carpometacarpal joint, right hand; M77.8 Other enthesopathies, not elsewhere classified | CPT/HCPCS: 99212 ==

== ENCOUNTER 2023-11-06 12:05 | Outpatient (AMB) | payer MEDICARE, SELFPAY ==
--- NOTE | 2023-11-06 12:32 | A.OFFVIS_ITS ---
Intake Intake Visit Reasons: PO Right thumb IPJ 09/22/23 AR Intake Note: Meera is a 63 year old female who presents today for a post op appointment s/p right thumb IPJ 09/22/23 AR. Patient reports he pain came back. She states noticing the lumps coming back about 2 weeks ago. The lumps are causing her a lot of sharp pain through out the MCP and CMC joint in the right thumb. Allergies No Known Allergies Allergy (Verified 11/06/23 12:33) HPI PO Right thumb IPJ 09/22/23 AR HPI Details 63-year-old female who presents in the o [facility] today for a ROM check; 1 month status post right thumb mucous cyst excision and IP joint arthrotomy and excision of osteophytes, which was performed on 09/22/[address] Morales. I last saw the patient in the office on 10/03/2023 where she was released to return to normal activities as tolerated. She was also referred to occupational therapy. However, she has not attended any visits. While in the office today the patient states her pain has returned and she has noticed about 2 weeks ago the lump started to return on the dorsal aspect of the thumb near the incision site and also along the radial side of the IP joint. She reports the lumps are causing her sharp pain through out the right thumb. [facility] Medical History HTN (hypertension) Surgical History History of thyroid surgery Social History Alcohol intake: never Comment: counts correct Patient Tobacco Use Status: Never used Tobacco Current occupational status: disabled Current occupation: rt hand Review of Systems Const All systems reviewed & are unremarkable except as noted in HPI and below Physical Exam Const General: cooperative, healthy appearing and no acute distress Resp Effort & Inspection: normal respiratory effort and able to speak in complete sentences Cardio Rate: regular rate Peripheral pulses: Peripheral pulses 2+ throughout GI Palpation (GI): Soft to palpation Skin Lesions: no lesions Rashes: no rashes Extrem Other: Right thumb: Incision site is clean, dry, and intact. No surrounding erythema or drainage. No signs of infection. Able to slightly perform flexion and extension at the IP joint but is limited due to stiffness. She also reports area of tenderness along the dorsal aspect of the thumb at the IP joint over the incision site. Swelling and tenderness to palpation over the radial collateral ligament of the thumb. Sensation is intact. Assessment & Plan Assessment & Plan (1) Osteoarthritis of right thumb: Code(s): M18.11 - Unilateral primary osteoarthritis of first carpometacarpal joint, right hand (2) Bone spur of finger IP joint: Code(s): M77.8 - Other enthesopathies, not elsewhere classified Plan 63-year-old female who presents in the office today for a ROM check; 1 month status post right thumb mucous cyst excision and IP joint arthrotomy and excision of osteophytes, which was performed on 09/22/[address] Morales. I last saw the patient in the office on 10/03/2023 where she was released to return to normal activities as tolerated. She was also referred to occupational therapy. However, she has not attended any visits. While in the office today the patient states her pain has returned and she has noticed about 2 weeks ago the lump started to return on the dorsal aspect of the thumb near the incision site and also along the radial side of the IP joint. She reports the lumps are causing her sharp pain through out the right thumb. Patient will be referred back to Dr. Morales for evaluation. I encouraged O.T. however the patient is apprehensive at this time. I encouraged ROM exercises to be performed at home multiple times throughout the day. She is concerned about the pain and swelling. She will f./u with Dr. Morales next week, sooner if needed. Patient Instructions: Scribed for Brenda Villegas PA-C by Ellyn Khalil medical tech, on 11/06/2023 at 12:23 pm, EST. Coding Level of Care Code Global (33529) Diagnoses Osteoarthritis of right thumb M18.11 Bone spur of finger IP joint M77.8
== END 2023-11-06 12:48 | disposition home or self-care (01) ==
PROVIDERS: PCP Internal Medicine Geriatric Medicine; Visit Provider Physician Assistant
DX: M18.11 Unilateral primary osteoarthritis of first carpometacarpal joint, right hand (principal); M77.8 Other enthesopathies, not elsewhere classified
CPT/HCPCS: 99024

== ENCOUNTER → 2023-11-06 12:05 | Outpatient (BNVA) | payer MEDICARE, SELFPAY | PROVIDERS: PCP Internal Medicine Geriatric Medicine; Visit Provider Physician Assistant | DX: M18.11 Unilateral primary osteoarthritis of first carpometacarpal joint, right hand (principal); M77.8 Other enthesopathies, not elsewhere classified | CPT/HCPCS: 99212 ==

== ENCOUNTER 2023-11-12 13:33 | Outpatient (AMB) | payer MEDICARE, SELFPAY ==
[2023-11-12 13:47] VITALS: BMI 29.6
--- NOTE | 2023-11-12 13:47 | A.OFFVIS_ITS ---
Intake Vital Signs 11/12/23 13:47 Height 4 ft 9 in Weight 137 lb BMI 29.6 Intake Visit Reasons: PO - Right thumb IPJ 09/22/23 AR Intake Note: Meera is a 63 year old female who presents today for a post op visit for her right thumb IPJ 09/22/23 AR. State her thumb is not better and is now more swollen. She is not able to bend her thumb at her MCP joint. Allergies No Known Allergies Allergy (Verified 11/12/23 13:50) HPI PO - Right thumb IPJ 09/22/23 AR HPI Details Meera is a 63 year old right hand dominant woman who presents S/P right thumb IP joint arthrotomy, osteophyte excision, and excision of mucous cyst, DOS: 09/22/23. She presents today with complaints of worsening pain and swelling in her thumb. She reports feelings stiffness in her thumb and says she struggles to bend it at times. She is concerned she may have her cyst returning, or she has other lumps on her thumb. She has not done any OT hand therapy at this time. [facility] Medical History HTN (hypertension) Surgical History History of thyroid surgery Social History Alcohol intake: never Comment: counts correct Patient Tobacco Use Status: Never used Tobacco Current occupational status: disabled Current occupation: rt hand Review of Systems Const All systems reviewed & are unremarkable except as noted in HPI and below Physical Exam Vital Signs: BMI result Body Mass Index 29.6 Const General: no acute distress and alert Orientation/consciousness: patient oriented x3 Neuro General: patient oriented x3 Extrem Other: Evaluation of right Upper Extremity: The patient is alert, oriented, and in no acute distress Her incision is well healed. She has some mild sensitivity over the incision. She also has a tender bump over the volar ulnar aspect of the IP joint that appears to be new. It is unclear whether this may be a new osteophyte versus perhaps a small cyst in this area. She has about 35-40 degrees of flexion at the IP joint. The MCP joint is completely nontender and stable. No A1 eder tenderness. No tenderness about the CMC joint or 1st dorsal compartment today. Radiographs: Radiographs from 08/05/2023 do show right thumb IP joint arthritis with joint space narrowing and dorsal osteophyte formation Pathology report 09/22/23 Diagnosis Soft tissue, right thumb, excision: Fibrovascular and adipose tissue and peripheral nerves. COMMENT: The findings are consistent with a mucous cyst in the proper clinical context. Psych Appearance: grossly normal Affect: normal affect Attitude: cooperative Assessment & Plan Assessment & Plan (1) Osteoarthritis of right thumb: Code(s): M18.11 - Unilateral primary osteoarthritis of first carpometacarpal joint, right hand (2) Bone spur of finger IP joint: Code(s): M77.8 - Other enthesopathies, not elsewhere classified (3) Stiffness of thumb joint: Code(s): M25.649 - Stiffness of unspecified hand, not elsewhere classified Plan Assessment & Plan: 1. Right thumb IP joint osteoarthritis with a dorsal osteophyte and overlying mucous cyst, S/P arthrotomy, osteophyte excision, and mucous cyst excision, DOS: 09/22/23 2. Right hand osteoarthritis Involving the STT, Basal, and IP joints With an osteophyte on the volar ulnar aspect of the IP joint 3. Right thumb stiffness I educated her about these conditions I discussed her diagnosis and treatment options, including possible arthrodesis in the future I recommend activity modification and therapy. She has not yet done any OT hand therapy, and I discussed the importance of hand therapy with her I ordered a new course of OT hand therapy to improve ROM and normalize hand function She will follow up prn Scribed for Lucy Morales MD by Robert Street, medical education coordinator, on 11/12/23 at 2:15 PM, EST. Orders: Orders OT Evaluation and Treatment Today M18.11 - Unilateral primary osteoarthritis of first carpometacarpal joint, right hand, M77.8 - Other enthesopathies, not elsewhere classified Coding Level of Care Code Global (65091) Diagnoses Osteoarthritis of right thumb M18.11 Bone spur of finger IP joint M77.8 Stiffness of thumb joint M25.649
== END 2023-11-12 14:15 | disposition home or self-care (01) ==
PROVIDERS: PCP Internal Medicine Geriatric Medicine; Visit Provider Orthopaedic Surgery
DX: M18.11 Unilateral primary osteoarthritis of first carpometacarpal joint, right hand (principal); M77.8 Other enthesopathies, not elsewhere classified; M25.649 Stiffness of unspecified hand, not elsewhere classified
CPT/HCPCS: 99024

== ENCOUNTER → 2023-11-12 13:33 | Outpatient (BNVA) | payer MEDICARE, SELFPAY | PROVIDERS: PCP Internal Medicine Geriatric Medicine; Visit Provider Orthopaedic Surgery | DX: M18.11 Unilateral primary osteoarthritis of first carpometacarpal joint, right hand (principal); M77.8 Other enthesopathies, not elsewhere classified; M25.641 Stiffness of right hand, not elsewhere classified | CPT/HCPCS: 99212 ==